=== PATIENT | male | born 1980 | race Caucasian/White ===

== ENCOUNTER 2017-12-26 12:45 | Emergency (ER) | payer MEDICAID ==
[2017-12-26 12:52] VITALS: BP 129/67
--- NOTE | 2017-12-26 13:27 | EDPHY ---
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 He has no difficulty with vision other than it feeling scratched and difficulty keep but I open. This happened within the past hour. Tetanus is up-to-date less than 4 years ago. he has no injury elsewhere. He says that he was wearing protective glasses at the time. He has irrigated eyes prior to arrival. Does not were contacts or corrective lens. No other associated complaints or modifying factors. TIME OF INJURY: Less than 2 hr ago TETANUS STATUS: Less than 2 years ago MEDICAL/SURGICAL/SOCIAL HISTORY: Uncomplicated REVIEW OF SYSTEMS: Ten systems reviewed and are negative unless otherwise noted in the HPI EXAMINATION General Appearance: Alert, no distress Head: normocephalic, atraumatic ENT: EOM symmetric. There is no blood in the anterior chamber. There is no conjunctival injection or erythema. No obvious foreign body on direct visualization without on scope. Visual hall are intact by confrontation. Slit-lamp exam: There is large area of corneal abrasion centrally on the right eye. There is no rust ring or foreign body appreciated. No branching or dendritic lesions. Cardiovascular: Pulses normal throughout. Brisk cap refill Neurological: A&O, sensory symmetric, strength symmetric Skin: Warm and dry, no rash. No periorbital cellulitis, erythema or laceration. Extremities: Nontender, no pedal edema DIFFERENTIAL DIAGNOSES: Including but not limited to corneal abrasion, conjunctival abrasion, foreign body MDM: 1:20 p.m. Large right-sided corneal abrasion with no foreign body present. I do not appreciate any rust ring or foreign body. The lids were everted. He does not use any corrective lenses. His visual hall are intact by confrontation with nearly symmetric vision in the right eye compared to the unaffected left eye. I will treat him with Polytrim eyedrops. I discussed ophthalmology follow-up. I offered a soft eye patch because declined. We discussed strict ED precautions for our pain, fever couple minutes difficult to the vision. He is comfortable this plan discharged home stable condition. SUPERVISION: Patient was independently examined, but I discussed the case with my secondary supervising physician Dr. Camacho ED Precautions: Worsening pain. Erythema, edema, cyanosis, pallor, paresthesia or anesthesia. - History Smoking Status: Never smoked - Objective Vital Signs: Initial Vital Signs Temperature (C) 98.2 F 12/26/17 12:50 Heart Rate 67 12/26/17 12:50 Respiratory Rate 16 12/26/17 12:50 Blood Pressure 129/67 H 12/26/17 12:50 O2 Sat (%) 93 12/26/17 12:50 O2 Delivery Mode Room Air Allergies/Adverse Reactions: No Known Allergies Allergy (Unverified 12/26/17 12:50) Home Medications: Medication Instructions Recorded Gabapentin 12/26/17 Oxycodone HCl 12/26/17 Polymyxin B Sulfate/Tmp [Polytrim 1 drops RTEYE Q6 #1 bottle 12/26/17 Opht Drops (*)] Medications Given: Discontinued Medications Polymyxin/Trimethoprim Sulfate (Polytrim Opht Drops) 1 drops RTEYE Q6HRS [place] Stop: 01/25/18 17:59 Last Admin: 12/26/17 13:55 Dose: 1 drops Departure - Departure Disposition: Home, Routine, Self-Care Clinical Impression: Corneal abrasion, right Qualifiers: Encounter type: initial encounter Qualified Code(s): S05.01XA - Injury of conjunctiva and corneal abrasion without foreign body, right eye, initial encounter Condition: Good Instructions: Corneal Abrasion (ED) Additional Instructions: 1. Polytrim eye drops to the right eye every 6 hr for 7 days 2. Contact the on-call tip cutter for outpatient follow-up as provided 3. Return here for any worsening symptoms, visual disturbance, headache, double vision, redness around the eye Referrals: Kar Lal MD [Medical Doctor] - As per Instructions Prescriptions: Polymyxin B Sulfate/Tmp [Polytrim Opht Drops (*)] 1 drops RTEYE Q6 #1 bottle
[2017-12-26] MEDS ORDERED: POLYMYXIN B SULFATE/TMP 10 ML OPHT.BTL RTEYE SCH (18:00)
== END 2017-12-26 13:59 | disposition home or self-care (01) ==
DX: S05.01XA Injury of conjunctiva and corneal abrasion without foreign body, right eye, initial encounter (principal); W22.8XXA Striking against or struck by other objects, initial encounter; Y99.0 Civilian activity done for income or pay; Y93.89 Activity, other specified